=== PATIENT | male | born 1970 | race Asian ===

== ENCOUNTER 2018-05-28 10:23 | Emergency (ER) | payer OTHER ==
[2018-05-28 10:40] VITALS: BP 131/85; PULSE 76; TEMP 98.5; BMI 26.5
--- NOTE | 2018-05-28 11:26 | PDOC ---
History of Present Illness - General Chief Complaint: Sore Throat Stated Complaint: SORE THROAT/ITCHES EYES Time Seen by Provider: 05/28/18 11:04 History Source: Patient Exam Limitations: No Limitations - History of Present Illness Initial Comments: 05/28/18 11:46 48yo M w/ no sig PMHx comes in c/o 10 days of a runny nose, stuffy nose, generalized malaise, fatigue, clogged ears. He feels a lot of mucus in the back of his throat and has started coughing recently. No Hemoptysis. He came from [place] 6 days ago and while over there he took amoxicillin for 4-5 days, which did not help at all. NO other complaints today, no fever/chills, no rash anywhere, no chest pain, no abdominal pain, no NVD. No change in appetite, no decrease in urination. 05/28/18 12:26 Past History - Past Medical History Allergies/Adverse Reactions: Allergies Allergy/AdvReac Type Severity Reaction Status Date / Time No Known Allergies Allergy Verified 05/28/18 10:38 Home Medications: Ambulatory Orders Amoxicillin - [Amoxicillin 500mg Capsule -] 500 mg PO BID 05/28/18 Cetirizine HCl [Zyrtec -] 10 mg PO DAILY #30 tablet 05/28/18 Fluticasone Prop 0.05% Nasal [Flonase -] 1 spray NS DAILY 20 Days #1 bot Pseudoephedrine HCl [Sudafed] 60 mg PO TID 3 Days #15 tablet 05/28/18 Sodium Chloride [Saline Nasal Viola] 30 ml NS QID 5 Days #1 bot 05/28/18 COPD: No - Suicide/Smoking/Psychosocial Hx Smoking History: Never smoked Hx Alcohol Use: No Drug/Substance Use Hx: No Substance Use Type: None Review of Systems - Review of Systems Able to Perform ROS?: Yes Constitutional: Yes: Malaise. No: Chills, Fever, Night Sweats HEENTM: Yes: Throat Pain. No: Eye Pain, Recent change in vision Respiratory: Yes: Cough. No: Shortness of Breath Cardiac (ROS): No: Chest Pain, Palpitations, Chest Tightness ABD/GI: No: Diarrhea, Nausea, Vomiting, Abdominal cramping : No: Dysuria, Hematuria Musculoskeletal: No: Back Pain Integumentary: No: Rash Neurological: No: Headache, Numbness, Dizziness Psychiatric: No: Change in Appetite Endocrine: No: Unexplained Weight Loss *Physical Exam - Vital Signs Last Vital Signs Temp Pulse Resp BP Pulse Ox 98.5 F 76 18 131/85 99 05/28/18 10:38 05/28/18 10:38 05/28/18 10:38 05/28/18 10:38 05/28/18 10:38 - Physical Exam General Appearance: Yes: Nourished. No: Apparent Distress HEENT: positive: JOSE MANUEL, Normal ENT Inspection, Normal Voice, Nasal Congestion, Rhinorrhea, Other (Post nasal drip. (+)slightly inflammed nasal turbinates). negative: Pale Conjunctivae, Scleral Icterus (R), Scleral Icterus (L), Pharyngeal Erythema, Tonsillar Exudate, Tonsillar Erythema, TM Bulging, TM Dull , TM Erythema Neck: positive: Supple. negative: Decreased range of motion, Tender midline Respiratory/Chest: positive: Lungs Clear, Normal Breath Sounds. negative: Respiratory Distress, Accessory Muscle Use, Decreased Breath Sounds, Wheezing Cardiovascular: positive: Regular Rhythm, Regular Rate Gastrointestinal/Abdominal: positive: Normal Bowel Sounds, Soft. negative: Tender Musculoskeletal: positive: Normal Inspection. negative: CVA Tenderness, Decreased Range of Motion Extremity: positive: Normal Capillary Refill, Normal Inspection, Normal Range of Motion. negative: Tender, Pedal Edema Integumentary: positive: Normal Color, Dry. negative: Jaundice, Rash Neurologic: positive: Fully Oriented, Alert, Normal Mood/Affect Moderate Sedation - Procedure Monitoring Vital Signs: Procedure Monitoring Vital Signs Temperature 98.5 F 05/28/18 10:38 Pulse Rate 76 05/28/18 10:38 Respiratory Rate 18 05/28/18 10:38 Blood Pressure 131/85 05/28/18 10:38 O2 Sat by Pulse Oximetry (%) 99 05/28/18 10:38 Medical Decision Making - Medical Decision Making 05/28/18 12:30 48 yo w/ viral sydrome, no fever, no change in appetite/urination, He has post nasal drip, likely causing his cough. WIll give flonase, saline, sudafed, zyrtec , and will have pt follow up with PMD. Rest and fluids recommended. Return for worsening/concerning symtpoms. Pt verbalized understanding and agreed with plan *DC/Admit/Observation/Transfer Diagnosis at time of Disposition: Post-nasal drip Upper respiratory infection Qualifiers: URI type: unspecified viral URI Qualified Code(s): J06.9 - Acute upper respiratory infection, unspecified - Discharge Dispostion Disposition: HOME Condition at time of disposition: Stable - Prescriptions Prescriptions: Cetirizine HCl [Zyrtec -] 10 mg PO DAILY #30 tablet Fluticasone Prop 0.05% Nasal [Flonase -] 1 spray NS DAILY 20 Days #1 bot Pseudoephedrine HCl [Sudafed] 60 mg PO TID 3 Days #15 tablet Sodium Chloride [Saline Nasal Viola] 30 ml NS QID 5 Days #1 bot - Referrals Referrals: Marcial Ray MD [Primary Care Provider] - - Patient Instructions Printed Discharge Instructions: DI for Viral Upper Respiratory Infection -- Adult Additional Instructions: Rest and drink plenty of fluids. FOllow up with your regular doctor in 2 days. Return for worsening/concerning symptoms - Post Discharge Activity
== END 2018-05-28 11:29 | disposition home or self-care (01) ==
LOC: JER 10:23 → JERFT 10:23
DX: J06.9 Acute upper respiratory infection, unspecified (principal); B97.89 Other viral agents as the cause of diseases classified elsewhere; R09.82 Postnasal drip
CPT/HCPCS: 99281-25

== ENCOUNTER 2019-03-05 09:58 | Emergency (ER) | payer OTHER ==
[2019-03-05 10:06] VITALS: BP 143/99; PULSE 89; TEMP 98.4; BMI 28.4
[2019-03-05] MEDS ORDERED: SODIUM CHLORIDE FOR INHALATION 3 ML VIAL.NEB IH ONE (10:16)
--- NOTE | 2019-03-05 11:00 | PDOC ---
History of Present Illness - General Chief Complaint: Sore Throat Stated Complaint: COUGHING/ SORE THROAT Time Seen by Provider: 03/05/19 10:08 History Source: Patient Exam Limitations: No Limitations Past History - Past Medical History Allergies/Adverse Reactions: Allergies Allergy/AdvReac Type Severity Reaction Status Date / Time No Known Allergies Allergy Verified 03/05/19 10:10 Home Medications: Ambulatory Orders Benzonatate [Tessalon Pearls -] 200 mg PO TID #42 cap 03/05/19 Nebulizer and Compressor [Portable Nebulizer System] 1 each MC DAILY #1 each Sodium Chloride Inhalation [Normal Saline For Inhalation -] 3 ml IH Q6H #30 vial.neb 03/05/19 COPD: No - Psycho Social/Smoking Cessation Hx Smoking History: Never smoked Information on smoking cessation initiated: No Hx Alcohol Use: No Drug/Substance Use Hx: No Substance Use Type: None *Physical Exam - Vital Signs Last Vital Signs Temp Pulse Resp BP Pulse Ox 98.4 F 89 18 143/99 97 03/05/19 10:03 03/05/19 10:03 03/05/19 10:03 03/05/19 10:03 03/05/19 10:03 - Physical Exam General Appearance: No: Apparent Distress HEENT: positive: Normal Voice, Pharyngeal Erythema (minimal). negative: Muffled /Hoarse voice, Tonsillar Exudate, Tonsillar Erythema Respiratory/Chest: positive: Lungs Clear, Normal Breath Sounds. negative: Respiratory Distress Cardiovascular: positive: Regular Rhythm, Regular Rate, S1, S2. negative: Murmur Integumentary: positive: Normal Color Neurologic: positive: Alert ED Treatment Course - RADIOLOGY Radiology Studies Ordered: Category Date Time Status CHEST PA & LAT [RAD] Stat Radiology 03/05/19 10:16 Completed - Medications Given in the ED: ED Medications Discontinued Medications Generic Name Dose Route Start Last Admin Trade Name Freq PRN Reason Stop Dose Admin Sodium Chloride 3 ml 03/05/19 10:16 03/05/19 10:27 Normal Saline For Inhalation - IH 03/05/19 10:17 3 ml ONCE ONE Administration Medical Decision Making - Medical Decision Making 49 y/o M with no sig pmh presents with cough x 1.5 months (occasionally productive). Saw PCP 2 weeks ago and was prescribed Augmentin and steroids. States meds helped briefly but not completely resolved. Patient wants to change his PCP. +mild sore throat from the coughing. +rhinorrhea. Denies fever, postnasal drip, sob, cp, abd pain, n/v. CXR negative Given saline neb, but states unable to feel significant difference Will refer to submarine diver for further eval 03/05/19 10:56 Discharge - Discharge Information Problems reviewed: Yes Clinical Impression/Diagnosis: Cough Condition: Stable Disposition: HOME - Admission No - Additional Discharge Information Prescriptions: Benzonatate [Tessalon Pearls -] 200 mg PO TID #42 cap Nebulizer and Compressor [Portable Nebulizer System] 1 each MC DAILY #1 each Sodium Chloride Inhalation [Normal Saline For Inhalation -] 3 ml IH Q6H #30 vial.neb Prescription Drug Monitoring Program (I-STOP) results: I-STOP not reviewed - Follow up/Referral Referrals: Peewee Oconnell MD, MD [Staff Physician] - 2 Days - Patient Discharge Instructions Patient Printed Discharge Instructions: DI for Cough -- Adult Additional Instructions: Thank you for choosing [facility]. It was a pleasure taking care of you. Please use meds as indicated for your cough You were referred to submarine diver for further evaluation Return to the Emergency Department if your symptoms worsen or persist or have other concerning symptoms. - Post Discharge Activity
== END 2019-03-05 11:06 | disposition home or self-care (01) ==
LOC: JERFT 09:58
PROC: 3E0F7GC Introduction of Other Therapeutic Substance into Respiratory Tract, Via Natural or Artificial Opening (ICD-10-PCS; principal; 2019-03-05)
DX: R05 Cough (principal)
CPT/HCPCS: 71046-TC-FY; 99281-25

== ENCOUNTER 2019-03-20 08:55 | Inpatient (IN) | payer OTHER ==
[2019-03-20 08:59] VITALS: BMI 27.9
[2019-03-20] MEDS ORDERED: ASPIRIN 81 MG CHEWABLE TABLETS PO ONE (09:45)
[2019-03-20] MEDS ORDERED: NITROGLYCERIN SUBLINGUAL 1/150 0.4 MG TAB SL ONE ×2 (09:45→12:32)
--- NOTE | 2019-03-20 09:59 | PDOC ---
Attending Attestation - Resident Resident Name: Olga Douglass - ED Attending Attestation I have performed the following: I have examined & evaluated the patient, The case was reviewed & discussed with the resident, I agree w/resident's findings & plan, Exceptions are as noted - HPI HPI: 03/20/19 10:11 Chief complaint chest pain: HPI: 49 years old with past medical history significant for high cholesterol positive family history father had an NM at 40, remote smoking history 12 years ago presents to the emergency department with chest pain starting yesterday mild worsening this morning at 7 AM it is left-sided pressure-like radiates to his left arm associated with shortness of breath which is worse with exertion Symptoms are moderate persistent constant exacerbated by exertion - Physicial Exam PE: 03/20/19 10:40 Vitals: Triage Vital signs reviewed General Appearance: No acute distress, well nourished well developed, Head: Atraumatic, Cardiac: Regular rate and rhythym, no murmurs, no rubs, no gallops, Lungs: Clear to auscultation bilateral, good air movement bilaterally, Abdomen: Soft, non distended, normal bowel sounds, non tender to palpation Extremities: Full range of motion to all extremities, no cyanosis, clubbing, or edema Skin: Warm and dry, no rashes or lesions, no rash, no petechiae Psych: Normal mood, normal affect - Medical Decision Making 03/20/19 11:39 Moderately suspicious story given dyspnea on exertion with chest pressure Given smoking history and significant family history will observe overnight for serial troponins and cardiology consultation Heart Score/ECG Review - History History: Moderately suspicious - Electrocardiogram EKG: Normal - Age Age: 45-65 - Risk Factors Risk Factors Heart Score: Yes Hx Hypercholesterolemia, Yes Smoking History, Yes Positive family hx of cardiac disease Based on the list above the patient has:: 1-2 risk factors - Troponin Troponin: </= normal limit - Score Heart Score - Total: 3 - ECG Impressions Comment:: 03/20/19 10:40 EKG performed at 908 demonstrates normal sinus rhythm incomplete right bundle branch block no ST elevations or T wave inversions Interpreted by me.
--- NOTE | 2019-03-20 10:04 | PDOC ---
History of Present Illness - General Chief Complaint: Chest Pain Stated Complaint: CHEST PAIN/SOB/LEFT HAND PAIN Time Seen by Provider: 03/20/19 09:12 - History of Present Illness Initial Comments: HPI: 49yo M with PMH of HLD presenting with chest pain since 7am this morning. Patient states the pain described as "pressure" radiating to his left arm. The pain is rated 7/10 and associated with shortness of breath such that he feels like he cannot take a deep breath. The pain worsens with exertion. No nausea, vomiting, or diaphoresis. Father had an MN in his 40s. Patient quit tobacco smoking ten years ago. No hemoptysis, no recent surgical history, no recent immobilization, no hormone use, no history of DVT or PE. States he had a negative cardiac workup including ECHO and stress test about three years ago but does not remember who the care technician was. Denies fevers or chills. PCP: Dr. Marcial Ray ROS: Constitutional: no fever, no chills HEENT: no throat pain, no dysphagia Cardiovascular: +chest pain, no palpitations Respiratory: no cough, +shortness of breath Gastrointestinal: no abdominal pain, no nausea Genitourinary: no dysuria, no hematuria Musculoskeletal: no myalgia, no arthralgia Skin: no rash, no itching Neurologic: no headache, no weakness PE: General: Awake, alert, and fully oriented, in no acute distress Head: No signs of trauma Eyes: EOMI, sclera anicteric ENT: Moist mucus membranes Neck: Normal ROM, supple Lungs: Lungs clear, Normal breath sounds Cardio: Regular rhythm, S1 and S2 present Abdomen: Soft, nontender. No guarding, no rebound, no masses Extremities: Normal range of motion, Distal pulses present. No calf tenderness SKIN: Warm, Dry, normal turgor Neurologic: Cranial nerves II through XII grossly intact. Normal speech ED Course/MDM: DDX including but not limited to ACS, PE, PNA, anemia, metabolic derangement Labs, EKG, CXR ASA Nitro SL PERC 0, low suspicion for PE Plan for admission EKG: #1: rate 69, Qtc 407, NSR, Incomplete RBBB also present on previous EKG EKG #2: rate 67, Qtc 407, NSR, Incomplete RBBB also present on previous EKG 03/20/19 10:02 CXR as read by radiology: " EXAM#: TYPE/EXAM: RESULT: [id number] RAD/CHEST X-RAY PORTABLE* Chest: Chest pain Single view of the chest reveals clear well-aerated lungs, normal mediastinum and sharp angles. The bones and soft tissues are intact. Impression: No acute chest pathology. Reported By: Timmy Uriostegui MD 03/20/19 1034 " Pending chemistries 03/20/19 10:50 CMP Sodium 139 mmol/L (136-145) 03/20/19 10:20 Potassium 4.2 mmol/L (3.5-5.1) 03/20/19 10:20 Chloride 105 mmol/L (98-107) 03/20/19 10:20 Carbon Dioxide 27 mmol/L (21-32) 03/20/19 10:20 Anion Gap 7 MMOL/L (8-16) L 03/20/19 10:20 BUN 9.1 mg/dL (7-18) 03/20/19 10:20 Creatinine 1.0 mg/dL (0.55-1.3) 03/20/19 10:20 Est GFR (CKD-EPI)AfAm 103.42 03/20/19 10:20 Est GFR (CKD-EPI)NonAf 89.23 03/20/19 10:20 Random Glucose 102 mg/dL (74-106) 03/20/19 10:20 Calcium 8.7 mg/dL (8.5-10.1) 03/20/19 10:20 Total Bilirubin 0.7 mg/dL (0.2-1) 03/20/19 10:20 AST 25 U/L (15-37) 03/20/19 10:20 ALT 35 U/L (13-61) 03/20/19 10:20 Alkaline Phosphatase 72 U/L (45-117) 03/20/19 10:20 Creatine Kinase 128 U/L (26-308) 03/20/19 10:20 Troponin I < 0.02 ng/ml (0.00-0.05) 03/20/19 10:20 B-Natriuretic Peptide 6.5 pg/ml (5-125) 03/20/19 10:20 Total Protein 7.1 g/dl (6.4-8.2) 03/20/19 10:20 Albumin 3.8 g/dl (3.4-5.0) 03/20/19 10:20 Electrolytes unremarkable Cr normal No transaminitis Tpn undetectable BNP normal Plan for admission; observation is appropriate as patient with suspected cardiac ischemia with nondiagnostic initial evaluation requiring further immediate evaluation such as stress testing, imaging, and repeat laboratory testing to clarify diagnosis CP improved, now rated 4/10. Another SL nitro ordered Discussed case with Dr. Brown who accepted patient for telemetry observation under herself 03/20/19 11:59 Past History - Past Medical History Allergies/Adverse Reactions: Allergies Allergy/AdvReac Type Severity Reaction Status Date / Time No Known Allergies Allergy Verified 03/20/19 09:00 Home Medications: Ambulatory Orders Benzonatate [Tessalon Pearls -] 200 mg PO TID #42 cap 03/05/19 Nebulizer and Compressor [Portable Nebulizer System] 1 each MC DAILY #1 each Sodium Chloride Inhalation [Normal Saline For Inhalation -] 3 ml IH Q6H #30 vial.neb 03/05/19 COPD: No Hypercholesterolemia: Yes - Psycho Social/Smoking Cessation Hx Smoking History: Never smoked Hx Alcohol Use: No Drug/Substance Use Hx: No Substance Use Type: None *Physical Exam - Vital Signs Last Vital Signs Temp Pulse Resp BP Pulse Ox 97.8 F 70 16 127/83 95 03/20/19 09:59 03/20/19 09:59 03/20/19 08:57 03/20/19 09:59 03/20/19 09:59 Heart Score/ECG Review - History History: Highly suspicious - Electrocardiogram EKG: Normal - Age Age: 45-65 - Risk Factors Risk Factors Heart Score: Yes Hx Hypercholesterolemia, Yes Positive family hx of cardiac disease Based on the list above the patient has:: 1-2 risk factors - Troponin Troponin: </= normal limit - Score Heart Score - Total: 4 ED Treatment Course - LABORATORY CBC & Chemistry Diagram: 03/20/19 10:20 03/20/19 10:20 Discharge - Discharge Information Problems reviewed: Yes Clinical Impression/Diagnosis: Chest pain Qualifiers: Chest pain type: unspecified Qualified Code(s): R07.9 - Chest pain, unspecified Condition: Guarded - Admission Yes - Follow up/Referral - Patient Discharge Instructions - Post Discharge Activity
[2019-03-20] MEDS ORDERED: ASPIRIN 325 MG ENTERIC COATED TABLET (FP) ONE (10:13)
[2019-03-20] MEDS ORDERED: NITROGLYCERIN SUBLINGUAL 1/150 0.4 MG TAB ONE (10:13)
[2019-03-20 10:46] LABS: BASO % 0.3 % (0-2.0); EOS % 1.2 % (0-4.5); HEMATOCRIT 49.4 % (35.4-49); HEMOGLOBIN 16.5 GM/dL (11.7-16.9); LYMPH % 29.3 % (8-40); MCH 26.7 pg (25.7-33.7); MCHC 33.4 g/dl (32.0-35.9); MEAN PLT VOLUME 8.4 fl (7.5-11.1); MONO % 9.3 % (3.8-10.2); NEUT % 59.9 % (42.8-82.8); PLATELET COUNT 300 K/MM3 (134-434); RBC 6.17 M/mm3 (4.00-5.60); RDW 14.4 % (11.9-15.9); WHITE BLOOD COUNT 5.1 K/mm3 (4.0-10.0)
--- NOTE | 2019-03-20 11:00 | EKG ---
Test Reason : Blood Pressure : / mmHG Vent. Rate : 069 BPM Atrial Rate : 069 BPM P-R Int : 166 ms QRS Dur : 092 ms QT Int : 380 ms P-R-T Axes : 048 012 054 degrees QTc Int : 407 ms NORMAL SINUS RHYTHM INCOMPLETE RIGHT BUNDLE BRANCH BLOCK BORDERLINE ECG WHEN COMPARED WITH ECG OF 20-APR-2004 19:24, NO SIGNIFICANT CHANGE WAS FOUND Confirmed by SUNDAR PARKER MD ([id number]) on 03/20/2019 11:00:04 AM Referred By: Confirmed By:SUNDAR PARKER MD
[2019-03-20 11:06] LABS: INR 1.01 (0.83-1.09); PROTHROMBIN TIME (PATIENT) 11.9 SEC (9.7-13.0)
[2019-03-20 11:20] LABS: ALBUMIN 3.8 g/dl (3.4-5.0); BILIRUBIN,TOTAL 0.7 mg/dL (0.2-1); BLOOD UREA NITROGEN 9.1 mg/dL (7-18); CALCIUM 8.7 mg/dL (8.5-10.1); N-TERMINAL BNP 6.5 pg/ml (5-125); POTASSIUM 4.2 mmol/L (3.5-5.1); TOT PROT 7.1 g/dl (6.4-8.2)
--- NOTE | 2019-03-20 11:34 | EKG ---
Test Reason : Blood Pressure : / mmHG Vent. Rate : 067 BPM Atrial Rate : 067 BPM P-R Int : 164 ms QRS Dur : 092 ms QT Int : 386 ms P-R-T Axes : 044 003 038 degrees QTc Int : 407 ms NORMAL SINUS RHYTHM INCOMPLETE RIGHT BUNDLE BRANCH BLOCK BORDERLINE ECG WHEN COMPARED WITH ECG OF 20-MAR-2019 09:08, NO SIGNIFICANT CHANGE WAS FOUND Confirmed by SUNDAR PARKER MD ([id number]) on 03/20/2019 11:33:37 AM Referred By: Confirmed By:SUNDAR PARKER MD
[2019-03-20] MEDS ORDERED: FLU VACCINE QUAD 60 MCG/0.5 ML (MDV 19-20) IM ONE (18:46)
--- NOTE | 2019-03-20 19:15 | HP ---
Admitting History and Physical - Smoking History Smoking history: Never smoked Have you smoked in the past 12 months: No - Alcohol/Substance Use Hx Alcohol Use: No Home Medications - Allergies Allergies/Adverse Reactions: Allergies Allergy/AdvReac Type Severity Reaction Status Date / Time No Known Allergies Allergy Verified 03/20/19 09:00 - Home Medications Home Medications: Ambulatory Orders Nebulizer and Compressor [Portable Nebulizer System] 1 each MC DAILY #1 each Sodium Chloride Inhalation [Normal Saline For Inhalation -] 3 ml IH Q6H #30 vial.neb 03/05/19 Physical Examination Vital Signs: Vital Signs Temperature 98 F 03/20/19 18:35 Pulse Rate 72 03/20/19 18:35 Respiratory Rate 18 03/20/19 18:35 Blood Pressure 121/74 03/20/19 18:35 O2 Sat by Pulse Oximetry (%) 99 03/20/19 18:35 Labs: CBC, BMP 03/20/19 10:20 03/20/19 10:20 Problem List - Problems (1) Chest pain Code(s): R07.9 - CHEST PAIN, UNSPECIFIED Qualifiers: Chest pain type: unspecified Qualified Code(s): R07.9 - Chest pain, unspecified (2) HTN (hypertension) Code(s): I10 - ESSENTIAL (PRIMARY) HYPERTENSION (3) Hyperlipidemia Code(s): E78.5 - HYPERLIPIDEMIA, UNSPECIFIED
[2019-03-20] MEDS: HEPARIN NA (PORCINE) 5,000 UNITS/ML 1ML VIAL SQ SCH (21:35)
[2019-03-21 06:35] LABS: BASO % 0.4 % (0-2.0); EOS % 2.1 % (0-4.5); HEMATOCRIT 48.4 % (35.4-49); HEMOGLOBIN 16.4 GM/dL (11.7-16.9); LYMPH % 19.6 % (8-40); MCHC 33.8 g/dl (32.0-35.9); MEAN CELL VOLUME 79.8 fl (80-96); MEAN PLT VOLUME 8.8 fl (7.5-11.1); MONO % 10.5 % (3.8-10.2); NEUT % 67.4 % (42.8-82.8); PLATELET COUNT 284 K/MM3 (134-434); RBC 6.07 M/mm3 (4.00-5.60); RDW 14.3 % (11.9-15.9)
[2019-03-21 06:47] LABS: ALBUMIN 3.7 g/dl (3.4-5.0); BILIRUBIN,TOTAL 0.4 mg/dL (0.2-1); CREATININE 1.2 mg/dL (0.55-1.3); POTASSIUM 4.2 mmol/L (3.5-5.1); TOT PROT 6.7 g/dl (6.4-8.2)
--- NOTE | 2019-03-21 07:52 | CON.CARD ---
Consult Consult Specialty:: cardiology Reason for Consultation:: chest pain - History of Present Illness History of Present Illness: 49 years old with past medical history significant for high cholesterol, positive family history (father had an OK at 40), remote smoking history (3 ppd x 18 years; quit 12 years ago), overweight, presents to the emergency department with chest pain starting yesterday mild worsening this morning at 7 AM it is left-sided pressure-like radiates to his left arm associated with shortness of breath which is worse with exertion Symptoms are moderate, persistent, constant, and exacerbated by exertion. - History Source History Provided By: Patient, Medical Record Limitations to Obtaining History: No Limitations - Past Medical History Cardio/Vascular: Yes: HTN, Hyperlipdemia Renal/: No: Renal Failure - Alcohol/Substance Use Hx Alcohol Use: No - Smoking History Smoking history: Never smoked Have you smoked in the past 12 months: No Home Medications - Allergies Allergies/Adverse Reactions: Allergies Allergy/AdvReac Type Severity Reaction Status Date / Time No Known Allergies Allergy Verified 03/20/19 09:00 - Home Medications Home Medications: Ambulatory Orders Nebulizer and Compressor [Portable Nebulizer System] 1 each MC DAILY #1 each Sodium Chloride Inhalation [Normal Saline For Inhalation -] 3 ml IH Q6H #30 vial.neb 03/05/19 Family Medical History Family Hx Cardiac Disorders: Father (OK at 40 yrs old; had severral more; in his late 60s) Vital Signs: Vital Signs Temperature 97.7 F 03/21/19 05:49 Pulse Rate 61 03/21/19 05:49 Respiratory Rate 20 03/21/19 05:49 Blood Pressure 122/75 03/21/19 05:49 O2 Sat by Pulse Oximetry (%) 95 03/20/19 20:25 - Other Data Labs, Other Data: CBC, BMP 03/21/19 05:55 03/21/19 05:55 INR, PTT INR 1.01 (0.83-1.09) 03/20/19 10:20 Troponin, BNP 03/20/19 03/20/19 03/20/19 10:20 10:20 19:30 Troponin I < 0.02 < 0.02 B-Natriuretic Peptide 6.5 Troponin, BNP 03/20/19 03/20/19 03/20/19 10:20 10:20 19:30 Troponin I < 0.02 < 0.02 B-Natriuretic Peptide 6.5 Problem List - Problems (1) HTN (hypertension) Assessment/Plan: Pt to keep record as outpatient. Code(s): I10 - ESSENTIAL (PRIMARY) HYPERTENSION (2) Chest pain Assessment/Plan: No chest pain presently. TNI < 0.02 x 2. EKG: NSR incomplete RBBB (no change compared to 2004 EKG). Plan: Stress treadmill MIBI. ECHO. Addendum: Stress treadmill MIBI: no ischemia. ECHO: normal LVEF; abnromal diastolic complaince From a cardiac standpoint, pt may be discharged and followed as an outpatient ( sees Dr. Marcial Gibson; Dr. Nika Taylor is clinical data programmer in office). Code(s): R07.9 - CHEST PAIN, UNSPECIFIED Qualifiers: Chest pain type: unspecified Qualified Code(s): R07.9 - Chest pain, unspecified (3) Family history of early CAD Code(s): Z82.49 - FAMILY HX OF ISCHEM HEART DIS AND OTH DIS OF THE [facility] SYS (4) Hyperlipidemia Assessment/Plan: f/u lipid profile Code(s): E78.5 - HYPERLIPIDEMIA, UNSPECIFIED
--- NOTE | 2019-03-21 10:32 | ECHO ---
Version: 1 Name: YADIRA PITT Exam: Adult Echocardiogram Study Date: 03/21/2019, 8:34 AM Age: 49 Years MMode/2D Measurements & Calculations IVSd: 1.11 cm LVIDs: 2.8 cm LVIDd: 3.8 cm LVPWd: 1.25 cm LVOT diam: 2.14 cm Ao root diam: 3.0 cm LA dimension: 3.6 cm Doppler Measurements & Calculations MV E max praneeth: 59.5 cm/sec Med E/e': 9.5 MV A max praneeth: 51.6 cm/sec Med Peak E' Praneeth: 6.2 cm/sec MV E/A: 1.15 Lat E/e': 7.4 Lat Peak E' Praneeth: 8.0 cm/sec Ao max P.1 mmHg Ao V2 max: 112.1 cm/sec Left Ventricle The left ventricular size, thickness and function are normal. Ejection Fraction = 65%. The transmitr al spectral Doppler flow pattern is suggestive of impaired LV relaxation. Right Ventricle The right ventricle is normal in size and function. Atria Normal left and right atrial size and function. Mitral Valve The mitral valve is normal in structure and function. There is trace mitral regurgitation. Tricuspid Valve The tricuspid valve is normal in structure and function. There is Trace to mild tricuspid regurgitat ion. Aortic Valve The aortic valve is normal in structure and function. Pulmonic Valve The pulmonic valve is not well seen, but is grossly normal. Great Vessels The aortic root is normal size. Normal aortic arch, descending and ascending aorta. Pericardium/Pleura There is no pericardial effusion. Summary Statements The left ventricular size, thickness and function are normal Ejection Fraction = 65%. The transmitral spectral Doppler flow pattern is suggestive of impaired LV relaxation. The right ventricle is normal in size and function. Normal left and right atrial size and function. The mitral valve is normal in structure and function. There is trace mitral regurgitation. The tricuspid valve is normal in structure and function. There is Trace to mild tricuspid regurgitation. The aortic valve is normal in structure and function. The pulmonic valve is not well seen, but is grossly normal. The aortic root is normal size. Normal aortic arch, descending and ascending aorta There is no pericardial effusion. Estuardo Lopes 03/21/2019, 10:31 AM Ordering Physician: Olga Brown Referring Physician: TATE Performed By: Erma Lamas
[2019-03-21 12:32] VITALS: BP 128/94; PULSE 90; TEMP 98.3
[2019-03-21] MEDS: HEPARIN NA (PORCINE) 5,000 UNITS/ML 1ML VIAL SQ SCH (12:35)
== END 2019-03-21 13:13 | disposition home or self-care (01) | DRG 203 ==
LOC: JER 08:55 → JERBED 11:58 → OBSVTOIN 15:44 → J4W 16:51 → JERBED 17:04 → J4W 18:25
PROVIDERS: ADMIT Internal Medicine; ATTEND Internal Medicine
DX: R07.9 Chest pain, unspecified (principal); I45.10 Unspecified right bundle-branch block; E78.5 Hyperlipidemia, unspecified; I10 Essential (primary) hypertension
CPT/HCPCS: 36415; 71045-TC-FY; 78452-TC; 80053; 80061; 82550; 83721; 83880; 84443; 84484; 85025; 85610; 93005; 93010; 93017; 93306-TC; 99285-25; A9502; C1887; G0008; G0378; J1644; Q2036

== ENCOUNTER 2023-08-26 04:33 | Day surgery (SDC) | payer OTHER ==
[2023-08-20 12:55] VITALS: BMI 25.9
[2023-08-26 09:39] VITALS: RESP 18
[2023-08-26 09:42] VITALS: BP 123/85; PULSE 61; TEMP 97.6
== END 2023-08-26 09:47 | disposition home or self-care (01) ==
LOC: JASU-ENDO 04:33
PROVIDERS: ATTEND Internal Medicine Gastroenterology
PROC: 0DB98ZX Excision of Duodenum, Via Natural or Artificial Opening Endoscopic, Diagnostic (ICD-10-PCS; 2023-08-26)
PROC: 0DB68ZX Excision of Stomach, Via Natural or Artificial Opening Endoscopic, Diagnostic (ICD-10-PCS; 2023-08-26)
PROC: 0DJD8ZZ Inspection of Lower Intestinal Tract, Via Natural or Artificial Opening Endoscopic (ICD-10-PCS; principal; 2023-08-26 09:00)
DX: K57.30 Diverticulosis of large intestine without perforation or abscess without bleeding (principal); K29.50 Unspecified chronic gastritis without bleeding; B96.81 Helicobacter pylori [H. pylori] as the cause of diseases classified elsewhere; R10.13 Epigastric pain
CPT/HCPCS: 43239; G0121; 88305-TC; 88342-TC

== ENCOUNTER 2023-09-25 15:53 | Observation (INO) | payer OTHER ==
[2023-09-25 15:58] VITALS: BMI 26.6
[2023-09-25 17:07] LABS: BASO % 0.3 % (0-2.0); EOS % 1.7 % (0-4.5); HEMATOCRIT 46.1 % (35.4-49); HEMOGLOBIN 15.7 GM/dL (11.7-16.9); LYMPH % 21.9 % (8-40); MCH 26.7 pg (25.7-33.7); MCHC 34.1 g/dl (32.0-35.9); MEAN CELL VOLUME 78.3 fl (80-96); MEAN PLT VOLUME 8.2 fl (7.5-11.1); MONO % 11.2 % (3.8-10.2); NEUT % 64.9 % (42.8-82.8); PLATELET COUNT 239 10^3/uL (134-434); RBC 5.89 M/mm3 (4.00-5.60); RDW 14.2 % (11.9-15.9); WHITE BLOOD COUNT 8.3 K/mm3 (4.0-10.0)
[2023-09-25 17:28] LABS: POTASSIUM 3.7 mmol/L (3.5-5.1)
[2023-09-25 17:29] LABS: BLOOD UREA NITROGEN 12.4 mg/dL (7-18); CALCIUM 8.4 mg/dL (8.5-10.1); MAGNESIUM 2.1 mg/dL (1.8-2.4)
[2023-09-25 17:33] LABS: CREATININE 1.1 mg/dL (0.55-1.3)
[2023-09-25 17:34] LABS: PHOSPHOROUS 2.3 mg/dL (2.5-4.9)
[2023-09-25 17:38] LABS: N-TERMINAL BNP 75.2 pg/ml (5-125)
[2023-09-25] MEDS ORDERED: HEPARIN NA (PORCINE) 5,000 UNITS/ML 1ML VIAL IVPUSH PRN ×2 (18:38)
[2023-09-25 19:02] LABS: INR 1.07 (0.83-1.09); PROTHROMBIN TIME (PATIENT) 12.1 SEC (9.7-13.0)
[2023-09-25] MEDS ORDERED: HEPARIN NA (PORCINE) 5,000 UNITS/ML 1ML VIAL ONE (19:07)
[2023-09-25] MEDS ORDERED: HEPARIN INFUSION - 25,000 UNITS/500 ML INFUS.BAG IVPB ONE (19:08)
[2023-09-25] MEDS: HEPARIN NA (PORCINE) 5,000 UNITS/ML 1ML VIAL IVPUSH ONE (19:20)
[2023-09-25] MEDS: HEPARIN INFUSION - 25,000 UNITS/500 ML INFUS.BAG IVPB SCH (19:20)
[2023-09-25] MEDS ORDERED: NAPH,MB-DB/K PH,MBDB POWDER PACKET ONE (21:26)
[2023-09-25] MEDS: NAPH,MB-DB/K PH,MBDB POWDER PACKET PO ONE (21:29)
[2023-09-26] MEDS: APIXABAN 5 MG TABLET PO ONE (01:04)
[2023-09-26 08:16] LABS: HEMATOCRIT 46.6 % (35.4-49); MCH 27.1 pg (25.7-33.7); MCHC 34.2 g/dl (32.0-35.9); MEAN CELL VOLUME 79.3 fl (80-96); MEAN PLT VOLUME 8.6 fl (7.5-11.1); PLATELET COUNT 220 10^3/uL (134-434); RBC 5.88 M/mm3 (4.00-5.60); RDW 14.3 % (11.9-15.9); WHITE BLOOD COUNT 7.7 K/mm3 (4.0-10.0)
[2023-09-26 08:50] LABS: CALCIUM 8.6 mg/dL (8.5-10.1); CREATININE 0.9 mg/dL (0.55-1.3); MAGNESIUM 2.1 mg/dL (1.8-2.4); PHOSPHOROUS 2.7 mg/dL (2.5-4.9)
[2023-09-26] MEDS: APIXABAN 5 MG TABLET PO SCH (12:10)
[2023-09-27 13:12] LABS: POTASSIUM 4.1 mmol/L (3.5-5.1)
[2023-09-27 13:13] LABS: BLOOD UREA NITROGEN 11.9 mg/dL (7-18); CALCIUM 8.9 mg/dL (8.5-10.1)
[2023-09-27 13:14] LABS: ALBUMIN 3.7 g/dl (3.4-5.0)
[2023-09-27 13:19] LABS: BILIRUBIN,TOTAL 0.5 mg/dL (0.2-1); TOT PROT 7.4 g/dl (6.4-8.2)
[2023-09-27 14:46] VITALS: BP 121/91; PULSE 63; RESP 18; TEMP 97.9
== END 2023-09-27 16:53 | disposition home or self-care (01) ==
LOC: JER 15:53 → UNDOADMOB 19:45 → JERBED 19:45 → INTOOBSV 19:45 → JERBED 09-26 00:54 → J4W 09-26 00:54 → JERBED 09-26 13:12 → J4W 09-26 13:12
PROVIDERS: ADMIT Internal Medicine; ATTEND Internal Medicine
PROC: 3E033GC Introduction of Other Therapeutic Substance into Peripheral Vein, Percutaneous Approach (ICD-10-PCS; principal; 2023-09-26)
DX: I26.99 Other pulmonary embolism without acute cor pulmonale (principal); E78.5 Hyperlipidemia, unspecified; I10 Essential (primary) hypertension; R06.00 Dyspnea, unspecified
CPT/HCPCS: 0241U-QW; 36415; 71046-TC-FY; 71275-TC; 80048; 80053; 81240; 81241; 83735; 83880; 84100; 84484; 85025; 85027; 85300; 85379; 85610; 85730; 86301; 86850; 86900; 86901; 93005; 93010; 93306-TC; 93970-TC; 94761; 96365; 96375; 99285-25; G0378; J1644; Q9967